=== PATIENT | male | born 1980 | race American Indian/Alaskan Native ===

== ENCOUNTER 2018-03-08 18:29 | Emergency (ER) | payer OTHER ==
[2018-03-08 18:39] VITALS: O2SAT 99
[2018-03-08] MEDS ORDERED: Sodium Chloride 0.9% 1,000 ML IV STA ×2 (19:34→22:47)
[2018-03-08 19:57] LABS: BASO % 0.8 % (0.0-2.0); EOS # 0.1 K/uL (0.0-0.7); EOS % 1.8 % (0.0-4.0); HEMOGLOBIN 15.6 g/dL (12.0-18.0); LYMPH # 1.9 K/uL (1.0-4.3); LYMPH % 33.4 % (20.0-40.0); MEAN CELL VOLUME 84.7 fl (80.0-94.0); MEAN CORPUSCULAR HEMOGLOBIN 27.7 pg (27.0-31.0); MEAN CORPUSCULAR HGB CONC 32.7 g/dL (33.0-37.0); MEAN PLATELET VOLUME 8.3 fl (7.2-11.7); MONO # 0.5 K/uL (0.0-0.8); MONO % 8.9 % (0.0-10.0); NEUT # 3.1 K/uL (1.8-7.0); NEUT % 55.1 % (50.0-75.0); NRBC % 0.1 % (0.0-0.0); RBC 5.61 Mil/uL (4.40-5.90); RED CELL DISTRIBUTION WIDTH 14.4 % (11.5-14.5); WHITE BLOOD COUNT 5.6 K/uL (4.8-10.8)
[2018-03-08 20:08] LABS: ALB/GLOB RATIO 1.3 (1.0-2.1); ALBUMIN 4.9 g/dL (3.5-5.0); ALT/SGPT 70 U/L (21-72); AST/SGOT 38 U/L (17-59); BLOOD UREA NITROGEN 11 mg/dl (9-20); CALCIUM 9.7 mg/dL (8.4-10.2); GFR NON-AFRICAN AMERICAN > 60
[2018-03-08 20:56] LABS: URINE BACTERIA RARE (<OCC); URINE BILIRUBIN NEGATIVE (NEGATIVE); URINE BLOOD SMALL (NEGATIVE); URINE CLARITY CLEAR (Clear); URINE COLOR STRAW (YELLOW); URINE GLUCOSE (UA) NEG (Normal); URINE LEUKOCYTE ESTERASE NEG Leu/uL (Negative); URINE PROTEIN NEGATIVE (NEGATIVE); URINE UROBILINOGEN 0.2-1.0 mg/dL (0.2-1.0)
--- NOTE | 2018-03-08 22:25 | ED PDOC ---
HPI: Abdomen Time Seen by Provider: 03/08/18 19:16 Chief Complaint (Nursing): Male Genitourinary Chief Complaint (Provider): Abdominal pain History Per: Patient History/Exam Limitations: no limitations Onset/Duration Of Symptoms: Hrs (x1) Current Symptoms Are (Timing): Still Present Quality Of Discomfort: Sharp, Stabbing Additional Complaint(s): 37 year old male, with a past medical history of kidney stones, presents to the ED complaining of abdominal pain. Patient was diagnosed with kidney stones Thursday at [facility]. He was given a report that said he had a 5mm uteral stone with mild hydronephrosis and was discharged with flomax and pain medicine. Patient reports pain became acute, sharp, stabbing pain and rate d 01/13. PMD: none Past Medical History Reviewed: Historical Data, Nursing Documentation, Vital Signs Vital Signs: Last Vital Signs Temp 97.8 F 03/08/18 18:39 Pulse 68 03/08/18 18:39 Resp 18 03/08/18 18:39 BP 159/118 H 03/08/18 18:39 Pulse Ox 99 03/08/18 18:39 - Medical History PMH: Kidney Stones - Surgical History Surgical History: No Surg Hx - Family History Family History: States: Unknown Family Hx - Allergies Allergies/Adverse Reactions: Allergies Allergy/AdvReac Type Severity Reaction Status Date / Time No Known Allergies Allergy Verified 03/08/18 19:33 Review of Systems ROS Statement: Except As Marked, All Systems Reviewed And Found Negative Gastrointestinal: Positive for: Abdominal Pain Physical Exam - Reviewed Nursing Documentation Reviewed: Yes Vital Signs Reviewed: Yes - Physical Exam Appears: Positive for: No Acute Distress, Uncomfortable Head Exam: Positive for: ATRAUMATIC, NORMOCEPHALIC Skin: Positive for: Normal Color, Warm, Dry Eye Exam: Positive for: Normal appearance Neck: Positive for: Normal, Painless ROM Cardiovascular/Chest: Positive for: Regular Rate, Rhythm Respiratory: Positive for: Normal Breath Sounds. Negative for: Wheezing, Respiratory Distress Gastrointestinal/Abdominal: Positive for: Normal Exam, Soft. Negative for: Tenderness Extremity: Positive for: Normal ROM Neurologic/Psych: Positive for: Alert, Oriented. Negative for: Motor/Sensory Deficits - Laboratory Results Result Diagrams: 03/08/18 19:49 03/08/18 19:49 - ECG O2 Sat by Pulse Oximetry: 99 (RA) Pulse Ox Interpretation: Normal Medical Decision Making Medical Decision Making: Initial Impression: 37 y/o with renal colic insetting diagnosis of kidney stones. Initial Plan: --CT abd/pelvis --CMP --ED urine dipstick --CBC --Sodium chloride 1000mL IV --Toradol 30mg IV --Urinalysis 21:07 CT abd/pelvis FINDINGS: LUNG BASES: The lung bases appear clear. No pleural effusions are seen. LIVER: Unremarkable. GALLBLADDER AND BILE DUCTS: The gallbladder appears within normal limits. No radioopaque gallstones are seen. No biliary ductal dilatation is evident. PANCREAS: Unremarkable. SPLEEN: Unremarkable. ADRENAL GLANDS: Unremarkable. KIDNEYS, URETERS, AND BLADDER: 4 mm calculus is noted in the distal right ureter producing mild hydroureteronephrosis. There is perinephric stranding. Several non-obstructing calculi are present in the mid pole of right and left kidney measuring 1-2 mm. STOMACH AND BOWEL: Thick walled fluid filled colon is noted with involvement of all segments compatible with diffuse pancolitis. Infectious and inflammatory etiologies are considered. Consider follow up with colonoscopy. APPENDIX: No evidence of acute appendicitis on CT examination. PERITONEUM: No free fluid. No free air. LYMPH NODES: No lymphadenopathy is evident. REPRODUCTIVE: Unremarkable as visualized. VASCULATURE: No evidence of abdominal aortic aneurysm. BONES: No aggressive appearing osseous lesion. No acute osseous pathology evident. MISCELLANEOUS: Small fat-containing umbilical hernia is noted. IMPRESSION: 1. Thick walled fluid filled colon is noted with involvement of all segments compatible with diffuse pancolitis. Infectious and inflammatory etiologies are considered. Consider follow up with colonoscopy. 2. Small fat-containing umbilical hernia is noted. 3. 4 mm calculus is noted in the distal right ureter producing mild hydrouret eronephrosis. There is perinephric stranding. 4. Several non-obstructing calculi are present in the mid pole of right and left kidney measuring 1-2 mm. 00:05 Patient reports marked improvement of symptoms and is stable for discharge. Diagnosis is ureteral calculus. Scribe Attestation: Documented by Saqib Cabrera acting as a scribe for Nicola Mendez MD. Provider Scribe Attestation: All medical record entries made by the Scribe were at my direction and personally dictated by me. I have reviewed the chart and agree that the record accurately reflects my personal performance of the history, physical exam, medical decision making, and the department course for this patient. I have also personally directed, reviewed, and agree with the discharge instructions and disposition. Disposition - Clinical Impression Clinical Impression: Ureteral calculus - Disposition Referrals: Bob Boothe MD [Staff Provider] - Disposition: Routine/Home Disposition Time: 00:05 Condition: STABLE Additional Instructions: KATHARINA ARRIAZA, thank you for letting us take care of you today. Your provider was Nicola Mendez MD and you were treated for ABD PAIN. The emergency medical care you received today was directed at your acute symptoms. If you were prescribed any medication, please fill it and take as directed. It may take several days for your symptoms to resolve. Return to the Emergency Department if your symptoms worsen, do not improve, or if you have any other problems. Please contact your doctor or call one of the physicians/clinics you have been referred to that are listed on the Patient Visit Information form that is included in your discharge packet. Bring any paperwork you were given at discharge with you along with any medications you are taking to your follow up visit. Our treatment cannot replace ongoing medical care by a primary care provider outside of the emergency department. Thank you for allowing the [facility] team to be part of your care today. If you had an X-Ray or CT scan: A Radiologist will review the ED reading if any change in treatment is needed we will contact you. If you had a blood, urine, or wound culture: It will take several days for the results, if any change in treatment is needed we will contact you. If you had an STI test: It will take 48 hours for the results. Please call after 1 week if you have not heard back. Instructions: Kidney Stones in Adults Forms: [employer] (German)
[2018-03-08] MEDS ORDERED: Morphine 4 MG/ML VIAL IVP ONE (22:47)
[2018-03-08] MEDS ORDERED: Morphine 4 MG/ML VIAL ONE (22:56)
[2018-03-09 00:14] VITALS: BP 153/89; PULSE 63; RESP 15; TEMP 98.9
--- NOTE | 2018-03-09 13:22 | CT ---
Date of service: 03/08/2018 PROCEDURE: CT Abdomen and Pelvis without intravenous contrast HISTORY: renal colic COMPARISON: None. TECHNIQUE: Unenhanced. Neither IV nor oral contrast administered Radiation dose: Total exam DLP = 741.36 mGy-cm. This CT exam was performed using one or more of the following dose reduction techniques: Automated exposure control, adjustment of the mA and/or kV according to patient size, and/or use of iterative reconstruction technique. FINDINGS: LOWER THORAX: Unremarkable. LIVER: Unremarkable. No gross lesion or ductal dilatation. GALLBLADDER AND BILE DUCTS: Unremarkable. PANCREAS: Unremarkable. No gross lesion or ductal dilatation. SPLEEN: Unremarkable. ADRENALS: Unremarkable. No mass. KIDNEYS AND URETERS: Bilateral nonobstructing renal calculi none larger than 5 mm. Right hydroureter and hydronephrosis related to distal right ureteral calculus 3 mm. The calculus is approximately form cm from the right ureterovesical junction. VASCULATURE: Unremarkable. No aortic aneurysm. No atherosclerotic calcification or mural plaque present. BOWEL: Upper track contrast in nondistended colon and appendix. Accentuation of the wall of the sigmoid colon likely due to a decompressed state. APPENDIX: Unremarkable. Normal appendix. PERITONEUM: Unremarkable. No free fluid. No free air. LYMPH NODES: Unremarkable. No enlarged lymph nodes. BLADDER: Unremarkable. REPRODUCTIVE: Unremarkable. BONES: No acute fracture. OTHER FINDINGS: None. IMPRESSION: Distal right ureteral calculus producing proximal hydroureter and hydronephrosis. Bilateral small less than 5 mm upper tract calculi. Concordant findings (preliminary report) provided by [employer].
== END 2018-03-09 00:13 | disposition home or self-care (01) ==
LOC: H.ER 18:29
DX: N13.2 Hydronephrosis with renal and ureteral calculous obstruction (principal); K42.9 Umbilical hernia without obstruction or gangrene
CPT/HCPCS: 74176; 80053; 81003; 85025; 96374; 99284; J1885; J2270; J7030